=== PATIENT | male | born 1945 | race Caucasian/White ===

== ENCOUNTER 2017-11-21 07:22 | Day surgery (SDC) | payer MEDICARE, OTHER ==
[~2017-11-21 07:22] MED LIST: DIAZEPAM 5 MG TAB PO; DIPHENHYDRAMINE 25 MG CAP PO; FAMOTIDINE 20 MG TAB PO
[2017-11-21] MEDS ORDERED: SOD CHLORIDE 0.9% 500 ML (09:06)
[2017-11-21] MEDS ORDERED: LIDOCAINE 1% (MDV) 20 ML INJ (09:06)
[2017-11-21] MEDS ORDERED: IODIXANOL LOCM 100 ML BTL (09:06)
[2017-11-21] MEDS ORDERED: FENTAnyl 50 MCG/ML VIAL (09:07)
[2017-11-21] MEDS ORDERED: MIDAZOLAM 1 MG/ML 2 ML INJ (09:07)
[2017-11-21 09:20] LABS: ADD MAN DIFF? NO
[2017-11-21 09:26] LABS: WHITE BLOOD COUNT 5.7 10^3/ul (4.8-10.8)
[2017-11-21 09:26] LABS: BASOPHILS % 0.7 % (0.0-2.0); EOSINOPHILS # 0.2 10^3/ul (0.0-0.5); EOSINOPHILS % 4.2 % (0.0-7.0); HEMATOCRIT 38.6 % (42.0-52.0); HEMOGLOBIN 12.8 g/dl (14.0-18.0); LYMPHOCYTES # 1.2 10^3/ul (0.8-2.9); LYMPHOCYTES % 20.7 % (15.0-51.0); MEAN CORPUSCULAR HEMOGLOBIN 30.7 pg (29.0-33.0); MEAN CORPUSCULAR HGB CONC 33.2 g/dl (32.0-37.0); MEAN CORPUSCULAR VOLUME 92.6 fl (82.0-101.0); MEAN PLATELET VOLUME 11.6 fl (7.4-10.4); MONOCYTE # 0.5 10^3/ul (0.3-0.9); MONOCYTES % 9.5 % (0.0-11.0); NEUTROPHIL # 3.7 10^3/ul (1.6-7.5); NEUTROPHILS % 64.7 % (39.0-77.0); PLATELET COUNT 114 10^3/UL (140-415); POSITIVE DIFF @See below; RED BLOOD COUNT 4.17 10^6/ul (4.70-6.10); RED CELL DISTRIBUTION WIDTH 13.4 % (11.5-14.5)
[2017-11-21 09:36] LABS: PROTIME 21.3 Sec (11.9-14.9); PT RATIO 1.7
[2017-11-21 09:43] LABS: ANION GAP 11 (8-16); BLOOD UREA NITROGEN 25 mg/dl (7-20); CALCIUM 8.6 mg/dl (8.4-10.2); CARBON DIOXIDE 24 mmol/L (21-31); CHLORIDE 109 mmol/L (97-110); CHOLESTEROL 94 mg/dl (100-200); CREATININE 1.72 mg/dl (0.61-1.24); GLUCOSE 86 mg/dl (70-220); HDL CHOLESTEROL 45 mg/dl (31-75); LDL CHOLESTEROL,CALCULATED 24 mg/dl; POTASSIUM 4.1 mmol/L (3.5-5.1); SODIUM 140 mmol/L (135-144); TRIGLYCERIDES 126 mg/dl (0-149)
[2017-11-21 09:54] LABS: PARTIAL THROMBOPLASTIN TIME 35.1 Sec (25.0-35.0)
[2017-11-21] MEDS ORDERED: NITROGLYCERIN (IC) 100 MCG/ML INJ (09:57)
[2017-11-21] MEDS ORDERED: VERAPAMIL 5 MG INJ (09:57)
[2017-11-21] MEDS: SOD CHLORIDE 0.9% 1,000 ML IV (10:59)
[2017-11-21] MEDS ORDERED: morphine 2 MG INJ IV (11:00)
[2017-11-21] MEDS ORDERED: AL HYDROX/MG HYDROX/SIMETH 30 ML CUP PO (11:00)
[2017-11-21] MEDS ORDERED: ACETAMINOPHEN 325 MG TAB PO (11:00)
[2017-11-21] MEDS ORDERED: ONDANSETRON 4 MG INJ IV (11:00)
== END 2017-11-21 15:50 | disposition home health service (06) ==
LOC: CCL 07:22 → SDS 07:22 → CCL 15:50
DX: I25.10 Atherosclerotic heart disease of native coronary artery without angina pectoris (principal); I42.9 Cardiomyopathy, unspecified
CPT/HCPCS: 71045; 80048; 80061; 85025; 85610; 85730; 93005; 93458